=== PATIENT | female | born 1980 | race Caucasian/White ===

== ENCOUNTER 2022-06-02 19:04 | Emergency (ER) | payer MEDICARE, OTHER ==
[~2022-06-02 19:04] MED LIST: CLEOCIN HCL300 MG PO; CLINDAMYCIN HC150 MG PO; CYCLOBENZAPRINE10 MG PO; KEFLEX CAP 500500 MG PO; LODINE CAP 300300 MG PO; TRAMADOL HCL50 MG PO; ZOFRAN ODT 4 MG4 MG PO
[2022-06-02] MEDS ORDERED: IBUPROFEN600 MG PO (19:16)
[2022-06-02] MEDS ORDERED: PENVEE K 500 M500 MG PO (19:16)
== END 2022-06-02 19:27 | disposition home or self-care (01) ==
LOC: ER1 19:04
DX: K02.9 Dental caries, unspecified (principal); F17.210 Nicotine dependence, cigarettes, uncomplicated; Z88.8 Allergy status to other drugs, medicaments and biological substances
CPT/HCPCS: 99282

== ENCOUNTER → 2022-08-15 | Emergency (ER) | payer MEDICARE, OTHER ==
[~2022-08-15] MED LIST changes: +IBUPROFEN600 MG PO; +PENVEE K 500 M500 MG PO
== END | disposition left against medical advice (07) ==
LOC: ER1 16:43
DX: Z53.21 Procedure and treatment not carried out due to patient leaving prior to being seen by health care provider (principal)